=== PATIENT | male | born 1990 | race Caucasian/White ===

== ENCOUNTER 2020-11-28 14:59 | Emergency (ER) | payer SELFPAY ==
--- NOTE | 2020-11-28 15:38 | EDM.PDOC ---
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 The patient states that he had the device moved to this leg recently and has been working 15-hour days causing the irritation. The patient cannot have a sock between the device in his leg. The patient has been putting Neosporin on the area but it does not appear to be helping. The patient rates his pain as mild. Patient denies any fever, chills, headache, change in vision, syncope or near syncope. Denies any chest pain, back pain, shortness of breath or cough. Denies any abdominal pain, nausea, vomiting, diarrhea, constipation or dysuria. Has not noted any blood in urine or stool. Patient has been eating and drinking appropriately. Review of systems: As per history of present illness and below otherwise all systems reviewed and negative. Past medical history: As per history of present illness and as reviewed below otherwise noncontributory. Surgical history: As per history of present illness and as reviewed below otherwise noncontributory. Social history: See social history for further information Family history: As per history of present illness and as reviewed below otherwise noncontributory. Physical exam: General: Well developed and well nourished. Alert and orientated x 3. Nontoxic in appearance and in no acute distress. Vital signs are stable and have been reviewed by me. Nursing notes were reviewed. HEENT: Atraumatic, normocephalic, pupils equal and reactive bilaterally, negative for conjunctival pallor or scleral icterus, mucous membranes moist, throat clear, neck supple, nontender, trachea midline. No drooling or trismus noted. No meningeal signs. No hot potato voice noted. Lungs: Clear to auscultation bilaterally. No wheezes, rales, or rhonchi. Chest nontender. Normal work of breathing, no accessory muscles used. Heart: S1S2, regular rate and rhythm without overt murmur, gallops, or rubs. No JVD. No peripheral edema Abdomen: Soft, nondistended, nontender. Normoactive bowel sounds. Negative for masses or costovertebral tenderness. Skin: Ocular 3 cm diameter dried crusty area which is surrounded by erythema and increased warmth. Skin warm & dry. Hematologic: No petechiae or purpra. Mucosa appropriate color and normal nail bed color and refill. Extremities: Atraumatic, moves all extremities per self without difficulty or deficits, negative for cords or calf pain. Neurovascular unremarkable. Neuro: Awake, alert, oriented. Cranial nerves II through XII unremarkable. Cerebellum unremarkable. Motor and sensory unremarkable throughout. Exam nonfocal. Psychiatric: Mood and affect are appropriate. Normal thought process. Answering questions appropriately. Notes: *This patient was seen and evaluated during the 2019 SARS-CoV-2 novel coronavirus pandemic period. Community viral transmission is ongoing at time of this encounter and the emergency department is operating under pandemic response procedures. As stated above the patient is a 30-year-old male who presents with dental crusty circular wound on his right posterior calf that was caused by the alcohol monitoring device that he has to wear 24 hours a day. The patient is unable to wear any kind of sock in between his leg and the device. The area does not appear to be slightly swollen erythema. There is a clear demarcation surrounding the erythema. I will treat the patient with an antibiotic, Keflex 500 4 times daily for 7 days. I have given the patient some gauze to wrap around the device with hopes of easing the irritation. The patient is agreeable with the discharge plan. I have talked with the patient about today's findings, in addition to providing specific details for plan of care. Reassessment at the time of disposition demonstrates that the patient is in no acute distress. The patient is stable for discharge, counseling was provided and we discussed in great detail signs and symptoms that would prompt them to return to the Emergency Department. Medication, follow up and supportive care measures were reviewed and discussed. Voices understanding and is agreeable to plan of care. Denies any further questions or concerns at this time. Prescription:Keflex 500 mg 4 times daily for 7 days Impression: Infected wound Plan: 1. You were evaluated today on an emergent basis. Your your complaints of right posterior calf open wound infection due to your monitoring device was evaluated and found to be in need of an antibiotic. I am prescribing Keflex 500 mg 4 times daily for 7 days. Please ensure to take the entire medication. Try to cover the area to prevent irritation. Do not use a topical antibiotic at this point. Just clean with soap and water. Do not use an antibacterial soap. 2. You can alternate Tylenol and ibuprofen as needed for pain and fever management. 3. We encourage you to follow up with your primary care provider and/or recommended specialist in the next few days for re-evaluation and further care/management. 4. If your symptoms should worsen, new symptoms develop or any of the signs and symptoms we discussed should arise please return to the emergency room or call 911 (if needed). Definitive disposition and diagnosis as appropriate pending reevaluation and review of above. - Related Data Allergies Allergy/AdvReac Type Severity Reaction Status Date / Time No Known Allergies Allergy Verified 11/28/20 15:22 Home Meds: Home Meds . [No Known Home Meds] 11/28/20 [History] Past Medical History - Past Health History Medical/Surgical History: Denies Medical/Surgical History Social & Family History - Family History Family Medical History: No Pertinent Family History - Recreational Drug Use Recreational Drug Use: No Review of Systems - Review of Systems Review Of Systems: Comprehensive ROS is negative, except as noted in HPI. ED EXAM, GENERAL - Physical Exam Exam: See Below (See dictation) Course - Vital Signs Last Recorded V/S: Last Vital Signs Temp 96.9 F 11/28/20 15:18 Pulse 98 11/28/20 15:18 Resp 15 11/28/20 15:18 BP 118/70 11/28/20 15:18 Pulse Ox 97 11/28/20 15:18 Departure - Departure Time of Disposition: 15:37 Disposition: Home, Self-Care 01 Condition: Good Clinical Impression: Wound infection - Discharge Information *PRESCRIPTION DRUG MONITORING PROGRAM REVIEWED*: Not Applicable *COPY OF PRESCRIPTION DRUG MONITORING REPORT IN PATIENT ROMAN: Not Applicable Instructions: Wound Infection, [id number] Referrals: PCP,None [Primary Care Provider] - Forms: ED Department Discharge Additional Instructions: The following information is given to patients seen in the emergency department who are being discharged to home. This information is to outline your options for follow-up care. We provide all patients seen in our emergency department with a follow-up referral. The need for follow-up, as well as the timing and circumstances, are variable depending upon the specifics of your emergency department visit. If you don't have a primary care physician on staff, we will provide you with a referral. We always advise you to contact your personal physician following an emergency department visit to inform them of the circumstance of the visit and for follow-up with them and/or the need for any referrals to a consulting specialist. The emergency department will also refer you to a specialist when appropriate. This referral assures that you have the opportunity for follow-up care with a specialist. All of these measure are taken in an effort to provide you with optimal care, which includes your follow-up. Under all circumstances we always encourage you to contact your private physician who remains a resource for coordinating your care. When calling for follow-up care, please make the office aware that this follow-up is from your recent emergency room visit. If for any reason you are refused follow-up, please contact the [facility] Emergency Department at and asked to speak to the emergency department charge nurse. [facility] [address] [place] [address] [place] [address] Plan: 1. You were evaluated today on an emergent basis. Your your complaints of right posterior calf open wound infection due to your monitoring device was evaluated and found to be in need of an antibiotic. I am prescribing Keflex 500 mg 4 times daily for 7 days. Please ensure to take the entire medication. Try to cover the area to prevent irritation. Do not use a topical antibiotic at this point. Just clean with soap and water. Do not use an antibacterial soap. 2. You can alternate Tylenol and ibuprofen as needed for pain and fever management. 3. We encourage you to follow up with your primary care provider and/or recommended specialist in the next few days for re-evaluation and further care/management. 4. If your symptoms should worsen, new symptoms develop or any of the signs and symptoms we discussed should arise please return to the emergency room or call [phone] (if needed). Sepsis Event Note (ED) - Evaluation Sepsis Screening Result: No Definite Risk - Focused Exam Vital Signs: Vital Signs Temp Pulse Resp BP Pulse Ox 11/28/20 15:18 96.9 F 98 15 118/70 97
== END 2020-11-28 15:44 | disposition home or self-care (01) ==
LOC: MW.ED 14:59
DX: L08.89 Other specified local infections of the skin and subcutaneous tissue (principal)
CPT/HCPCS: 99283

== ENCOUNTER 2021-01-12 15:26 | Emergency (ER) | payer SELFPAY ==
[2021-01-12] MEDS ORDERED: Mupirocin Oint 22 GM Tube TOP ONE (16:24)
--- NOTE | 2021-01-12 16:25 | EDM.PDOC ---
ED HPI GENERAL MEDICAL PROBLEM - General Chief Complaint: Lower Extremity Injury/Pain Stated Complaint: LEFT ANKLE INFECTED Time Seen by Provider: 01/12/21 15:38 Source of Information: Reports: Patient History Limitations: Reports: No Limitations - History of Present Illness INITIAL COMMENTS - FREE TEXT/NARRATIVE: HISTORY AND PHYSICAL: History of present illness: Patient is a 30-year-old male who presents emergency room today with concern of infection of his left lower extremity that has been worsening over the past 3 to 4 days. Patient states that due to a DUI he had sustained, he has a continuous alcohol monitor on his legs. Patient states that he initially was getting an infection of his right leg so they remove the monitor reported on his left leg. Patient states that when he goes to work, the ankle monitor rubs with his shoes and states that he started developing an infection now on his left lower extremity due to the alcohol monitoring bracelet. Patient states that he went to the facility today and got the monitor removed before coming to the emergency room. Patient denies any other symptoms or concerns. Patient is unsure of his tetanus status but does not want to update this today. Patient denies fever, chills, chest pain, shortness of breath, or cough. Denies headache, neck stiff ness, change in vision, syncope, or near syncope. Denies nausea, vomiting, abdominal pain, diarrhea, constipation, or dysuria. Has not noted any blood in urine or stool. Patient has been eating and drinking appropriately. Review of systems: As per history of present illness and below otherwise all systems reviewed and negative. Past medical history: As per history of present illness and as reviewed below otherwise noncontributory. Surgical history: As per history of present illness and as reviewed below otherwise noncontributory. Social history: See social history for further information Family history: As per history of present illness and as reviewed below otherwise noncontributory. Physical exam: General: Patient is alert, oriented, and in no acute distress. Patient sitting comfortably on exam table. Vitals stable and reviewed by me. HEENT: Atraumatic, normocephalic, pupils equal and reactive bilaterally, negative for conjunctival pallor or scleral icterus, mucous membranes moist, TMs normal bilaterally, throat clear, neck supple, nontender, trachea midline. No drooling or trismus noted. No meningeal signs. No hot potato voice noted. Lungs: Clear to auscultation, breath sounds equal bilaterally, chest nontender. Heart: S1S2, regular rate and rhythm without overt murmur Abdomen: Soft, nondistended, nontender. Negative for masses or hepatosplenomegaly. Negative for costovertebral tenderness. Pelvis: Stable nontender. Genitourinary: Deferred. Rectal: Deferred. Skin: Intact, warm, dry. No lesions or rashes noted. Extremities: There is a large area of cellulitis of the left ankle with an overlying skin abrasion in the draining serosanguineous fluid of the anterior left ankle. The left ankle is moderately edematous around the area of cellulitis without any drainable abscess at this time. Otherwise, atraumatic, negative for cords or calf pain. Neurovascular unremarkable. Neuro: Awake, alert, oriented. Cranial nerves II through XII unremarkable. Cerebellum unremarkable. Motor and sensory unremarkable throughout. Exam n onfocal. Notes: Patient is a 30-year-old male who presents emergency room today with concern of infection of his left lower extremity from a alcohol monitoring band of his ankle that he had removed just prior to arrival to the emergency room. Upon arrival to the ED, patient is vitally stable and well-appearing on exam. However, patient does have a large area of cellulitis of his left ankle with a skin abrasion that is draining serosanguineous fluid on the anterior ankle with moderate edema of the ankle and surrounding cellulitis. There is no drainable abscess at this time. Patient is neurovascularly intact of the left lower extremity. I did recommend obtaining imaging of the ankle/foot and obtaining lab work with a dose of IV antibiotics today in the emergency room, however, patient declines requesting a trial of p.o. antibiotics and discharged home as he does not want to wait in the emergency room for diagnostic evaluation. All risks versus benefits discussed with patient and expresses understanding. Voices understanding. Denies any further questions or concerns at this time. Diagnostics: I did encourage patient to get a foot/ankle x-ray and lab work to fully understand the extent of the infection, however patient declines. All risks versus benefits discussed with patient and expresses understanding. Therapeutics: Bacitracin sterile dressing placed by nursing staff (I did offer a dose of IV antibiotics today in the emergency room but patient declines. All risks versus benefits discussed with patient and expresses understanding) Prescription: Clindamycin, topical Bactroban Impression: Left lower extremity cellulitis Skin abrasion, left lower extremity Plan: 1. Take medication as prescribed. You can alternate ibuprofen and Tylenol as directed for pain and discomfort. 2. Closely monitor for signs of improving versus worsening infection as discussed. Return to the emergency room in 24-48 hours for reevaluation as discussed. 3. Follow-up with a primary care provider as discussed. Definitive disposition and diagnosis as appropriate pending reevaluation and review of above. - Related Data Allergies Allergy/AdvReac Type Severity Reaction Status Date / Time cephalexin [From Keflex] Allergy Hives Verified 01/12/21 15:49 Home Meds: Home Meds Clindamycin HCl 450 mg PO TID 10 Days #30 capsule 01/12/21 [Rx] Mupirocin Oint [Bactroban Oint] 22 gm TP BID 3 Days #1 tube 01/12/21 [Rx] Past Medical History - Past Health History Medical/Surgical History: Denies Medical/Surgical History HEENT History: Reports: None Cardiovascular History: Reports: None Respiratory History: Reports: None Gastrointestinal History: Reports: None Genitourinary History: Reports: None Musculoskeletal History: Reports: None Neurological History: Reports: None Psychiatric History: Reports: None Endocrine/Metabolic History: Reports: None Hematologic History: Reports: None Immunologic History: Reports: None Oncologic (Cancer) History: Reports: None Dermatologic History: Reports: None - Infectious Disease History Infectious Disease History: Reports: None - Past Surgical History Head Surgeries/Procedures: Reports: None HEENT Surgical History: Reports: None Cardiovascular Surgical History: Reports: None Respiratory Surgical History: Reports: None GI Surgical History: Reports: None Male Surgical History: Reports: None Endocrine Surgical History: Reports: None Neurological Surgical History: Reports: None Musculoskeletal Surgical History: Reports: None Oncologic Surgical History: Reports: None Dermatological Surgical History: Reports: None Social & Family History - Family History Family Medical History: No Pertinent Family History - Tobacco Use Tobacco Use Status *Q: Current Every Day Tobacco User Years of Tobacco use: 20 Packs/Tins Daily: 1.5 - Caffeine Use Caffeine Use: Reports: None - Recreational Drug Use Recreational Drug Use: No Review of Systems - Review of Systems Review Of Systems: Comprehensive ROS is negative, except as noted in HPI. ED EXAM, GENERAL - Physical Exam Exam: See Below (See dictation) Course - Vital Signs Last Recorded V/S: Last Vital Signs Temp 96.9 F 01/12/21 15:50 Pulse 60 01/12/21 16:45 Resp 16 01/12/21 16:45 BP 126/68 01/12/21 16:45 Pulse Ox 98 01/12/21 16:45 - Orders/Labs/Meds Meds: Medications Discontinued Medications Generic Name Dose Route Start Last Admin Trade Name Freq PRN Reason Stop Dose Admin Bacitracin Confirm 01/12/21 16:37 01/12/21 16:42 Bacitracin Oint 1 Gm U/D Packet Administered 01/12/21 16:38 Not Given Dose 4 dose .ROUTE .STK-MED ONE Bacitracin 4 dose 01/12/21 16:42 01/12/21 16:43 Bacitracin Oint 1 Gm U/D Packet TOP 01/12/21 16:43 4 dose ONETIME ONE Administration Mupirocin 1 gm 01/12/21 16:24 01/12/21 16:42 Mupirocin Oint 22 Gm Tube TOP 01/12/21 16:25 Not Given ONETIME ONE Departure - Departure Time of Disposition: 16:24 Disposition: Home, Self-Care 01 Clinical Impression: Skin abrasion Cellulitis Qualifiers: Site of cellulitis: extremity Site of cellulitis of extremity: lower extremity Laterality: left Qualified Code(s): L03.116 - Cellulitis of left lower limb - Discharge Information Prescriptions: Mupirocin Oint [Bactroban Oint] 22 gm TP BID 3 Days #1 tube Clindamycin HCl 450 mg PO TID 10 Days #30 capsule Instructions: Cellulitis, Adult Referrals: PCP,None [Primary Care Provider] - Forms: ED Department Discharge Additional Instructions: The following information is given to patients seen in the emergency department who are being discharged to home. This information is to outline your options for follow-up care. We provide all patients seen in our emergency department with a follow-up referral. The need for follow-up, as well as the timing and circumstances, are variable depending upon the specifics of your emergency department visit. If you don't have a primary care physician on staff, we will provide you with a referral. We always advise you to contact your personal physician following an emergency department visit to inform them of the circumstance of the visit and for follow-up with them and/or the need for any referrals to a consulting specialist. The emergency department will also refer you to a specialist when appropriate. This referral assures that you have the opportunity for follow-up care with a specialist. All of these measure are taken in an effort to provide you with optimal care, which includes your follow-up. Under all circumstances we always encourage you to contact your private physician who remains a resource for coordinating your care. When calling for follow-up care, please make the office aware that this follow-up is from your recent emergency room visit. If for any reason you are refused follow-up, please contact the [facility] Emergency Department at and asked to speak to the emergency department charge nurse. [facility] [address] [place] [address] [id number] [address] [address] 1. Take medication as prescribed. You can alternate ibuprofen and Tylenol as directed for pain and discomfort. 2. Closely monitor for signs of improving versus worsening infection as discussed. Return to the emergency room in 24-48 hours for reevaluation as discussed. 3. Follow-up with a primary care provider as discussed. Sepsis Event Note (ED) - Evaluation Sepsis Screening Result: No Definite Risk - Focused Exam Vital Signs: Vital Signs Temp Pulse Resp BP Pulse Ox 01/12/21 16:45 60 16 126/68 98 01/12/21 15:50 96.9 F 107 H 18 108/74 100
[2021-01-12] MEDS ORDERED: Bacitracin Oint 1 GM U/D Packet ONE (16:37)
[2021-01-12] MEDS ORDERED: Bacitracin Oint 1 GM U/D Packet TOP ONE (16:42)
== END 2021-01-12 16:47 | disposition home or self-care (01) ==
LOC: MW.ED 15:26
DX: S90.512A Abrasion, left ankle, initial encounter (principal); L03.116 Cellulitis of left lower limb; Z88.1 Allergy status to other antibiotic agents; Z72.0 Tobacco use; X58.XXXA Exposure to other specified factors, initial encounter
CPT/HCPCS: 99283

== ENCOUNTER 2022-02-10 12:38 | Emergency (ER) | payer SELFPAY | END 2022-02-10 14:00 | disposition left against medical advice (07) | LOC: MW.ED 12:38 | DX: Z53.21 Procedure and treatment not carried out due to patient leaving prior to being seen by health care provider (principal) ==

== ENCOUNTER 2023-05-18 18:58 | Emergency (ER) | payer OTHER, BC ==
[2023-05-18] MEDS ORDERED: ceFAZolin 1 GM in Sodium Chloride 0.9% 50 ML IV ONE (19:08)
[2023-05-18] MEDS ORDERED: Lactated Ringers 1,000 ML IV STA (19:15)
[2023-05-18] MEDS ORDERED: Diphtheria,Pertussis(Acell),Tetanus Vaccine 0.5 ML Syringe IM ONE (19:15)
[2023-05-18] MEDS ORDERED: fentaNYL/Normal Saline 2,500 MCG in Premix Bag 1 BAG IV PRN (19:16)
[2023-05-18] MEDS ORDERED: Erythromycin Base 0.5% Ophth Oint 1 GM Tube EYEBOTH STA (19:17)
[2023-05-18] MEDS ORDERED: propofoL 100 ML IV SCH ×2 (19:30→20:00)
[2023-05-18 19:43] LABS: INR 0.99 (0.86-1.11); PTT,PARTIAL THROMBOPLSTIN TIME 22.7 SEC (23.9-30.7)
[2023-05-18 19:52] LABS: BASE EXCESS ARTERIAL -3.2 (-2.0-3.0); BICARBONATE,ARTERIAL 20 mEq/L (22-26); PCO2 ARTERIAL 30 mmHG (35-45); PO2 ARTERIAL 378 mmHG (80-105)
[2023-05-18 19:52] LABS: A/G RATIO 1.2 (0.9-1.6); ALANINE AMINOTRANSFERASE,ALT 20 IU/L (14-63); ALBUMIN 3.3 g/dL (3.4-5.0); ALKALINE PHOSPHATASE 68 U/L (46-116); ASPARTATE AMNIOTRANSFERASE,AST 34 IU/L (15-37); BILIRUBIN TOTAL 0.5 mg/dL (0.2-1.0); BLOOD UREA NITROGEN,BUN 23 mg/dL (7.0-18.0); CALCIUM 8.2 mg/dL (8.5-10.1); CARBON DIOXIDE,CO2 24.1 mmol/L (21.0-32.0); CHLORIDE,CL 105 mmol/L (98-107); CREATININE 1.3 mg/dL (0.8-1.3); ETHANOL BLOOD MEDICAL <3 mg/dL; GLUCOSE RANDOM 205 mg/dL (74-106); MAGNESIUM 1.5 mg/dL (1.8-2.4); POTASSIUM,K 2.8 mmol/L (3.5-5.1); SODIUM,NA 139 mmol/L (136-148)
[2023-05-18 19:53] LABS: BASOPHILS ABSOLUTE AUTO 0.07 K/uL (0.00-0.20); BASOPHILS PERCENT AUTO 0.5 % (0.0-1.0); EOSINOPHILS ABSOLUTE AUTO 0.09 K/uL (0.00-0.45); EOSINOPHILS PERCENT AUTO 0.6 % (0.0-6.0); HEMATOCRIT 39.3 % (42.0-52.0); IMMATURE GRAN ABSOLUTE AUTO 0.07 K/uL (0.00-0.05); IMMATURE GRAN PERCENT AUTO 0.5 % (0.0-0.4); LYMPHOCYTES ABSOLUTE AUTO 2.02 K/uL (1.00-4.80); LYMPHOCYTES PERCENT AUTO 13.4 % (24.0-44.0); MEAN CORPUSCULAR HEMOGLOBIN 32.8 pg (28.0-32.0); MEAN CORPUSCULAR HGB CONC 35.6 g/dL (32.0-36.0); MEAN PLATELET VOLUME 9.9 fL (9.4-12.4); MONOCYTES ABSOLUTE AUTO 0.85 K/uL (0.00-0.80); MONOCYTES PERCENT AUTO 5.6 % (0.0-8.0); NEUTROPHILS ABSOLUTE AUTO 12.02 K/uL (1.80-7.70); NEUTROPHILS PERCENT AUTO 79.4 % (41.0-71.0); PLATELET COUNT,PLT 282 K/uL (150-400); RED BLOOD CELL COUNT 4.27 M/uL (4.52-5.90); WHITE BLOOD CELL COUNT,WBC 15.12 K/uL (3.9-11.3)
[2023-05-18 19:54] LABS: ESTIMATED GFR 73 mL/min (>60)
[2023-05-18] MEDS ORDERED: propofoL 100 ML ONE (19:54)
[2023-05-18] MEDS ORDERED: Propofol 200 MG/20 ML SDV ONE (19:54)
[2023-05-18] MEDS ORDERED: Magnesium Sulfate/Water 2 GM in Premix Bag 1 BAG IV STA (19:57)
[2023-05-18] MEDS ORDERED: fentaNYL 100 MCG/2 ML SDV ONE (19:58)
[2023-05-18] MEDS ORDERED: Propofol 200 MG/20 ML SDV IVPUSH ONE (20:00)
[2023-05-18] MEDS ORDERED: Midazolam 1 MG/ML 2 ML SDV ONE (20:04)
[2023-05-18 20:23] LABS: LACTIC ACID 3.1 mmol/L (0.4-2.0)
[2023-05-18] MEDS ORDERED: Midazolam 1 MG/ML 2 ML SDV IVPUSH ONE (20:30)
[2023-05-18] MEDS: Potassium Chloride 100 ML IV SCH (20:30)
[2023-05-18] MEDS: propofoL 100 ML ONE ×2 (20:30)
[2023-05-18] MEDS ORDERED: fentaNYL 100 MCG/2 ML SDV IVPUSH ONE (20:30)
== END 2023-05-18 21:00 ==
LOC: MW.ED 18:58
DX: T20.00XA Burn of unspecified degree of head, face, and neck, unspecified site, initial encounter (principal)
CPT/HCPCS: 31500; 36415; 36600; 43752; 51702; 71045; 72170; 80053; 80307; 82803; 83605; 83735; 84484; 85025; 85610; 85730; 90471; 90715; 96374; 96375; 99291; A9270; G0390; J0690; J2250; J2704; J3010; J3475; J3480; J3490; J7120; 36556; 36620

== ENCOUNTER 2023-09-17 20:39 | Emergency (ER) | payer BC, OTHER ==
[2023-09-17] MEDS: HYDROmorphone 2 MG Tab PO STA (21:21)
== END 2023-09-17 21:37 | disposition home or self-care (01) ==
LOC: MW.ED 20:39
DX: Z76.0 Encounter for issue of repeat prescription (principal); G89.21 Chronic pain due to trauma; Z88.1 Allergy status to other antibiotic agents; Z79.899 Other long term (current) drug therapy
CPT/HCPCS: 99281; A9270; 99283

== ENCOUNTER 2023-11-21 20:12 | Emergency (ER) | payer BC ==
[2023-11-21] MEDS: HYDROmorphone 2 MG Tab PO ONE (21:30)
== END 2023-11-21 21:46 | disposition home or self-care (01) ==
LOC: MW.ED 20:12
DX: T22.031A Burn of unspecified degree of right upper arm, initial encounter (principal); T22.032A Burn of unspecified degree of left upper arm, initial encounter; T30.0 Burn of unspecified body region, unspecified degree; Z87.891 Personal history of nicotine dependence; Z79.899 Other long term (current) drug therapy; Z79.891 Long term (current) use of opiate analgesic; Z88.8 Allergy status to other drugs, medicaments and biological substances
CPT/HCPCS: 99283; A9270